=== PATIENT | female | born 1960 | race Caucasian/White ===

== ENCOUNTER 2017-06-21 04:52 | Inpatient (IN) ==
[2017-06-21] MEDS ORDERED: Ondansetron 4 MG/2 ML VIAL IVP PRN (06:22)
[2017-06-21] MEDS ORDERED: Naloxone 0.4 MG/ML INJ IVP PRN (06:22)
[2017-06-21] MEDS ORDERED: 0.9 % Sodium Chloride 1,000 ML IVC SCH ×2 (06:30→07:00)
[2017-06-21 06:51] LABS: Basophils # 0.1 K/mcL (0.0-0.2); Basophils % 0.6 %; Eosinophils % 0.4 %; Hemoglobin 12.3 g/dL (11.5-15.4); Immature Granulocytes % 0.7 % (0-4); Mean Corpuscular HGB Conc 31.5 g/dL (31.6-35.5); Mean Corpuscular Hemoglobin 30.5 pg (28.0-33.3); Mean Corpuscular Volume 96.8 fL (83.0-100.0); Mean Platelet Volume 11.7 fL (9.4-12.4); Monocytes # 0.6 K/mcL (0.0-1.3); Monocytes % 5.7 %; Neutrophils # 7.1 K/mcL (1.6-8.9); Platelet Count 174 K/mcL (140-400); Red Blood Count 4.03 M/mcL (3.82-4.97); Red Cell Distribution Width 16.6 % (11.5-14.5); Segmented Neutrophils % 72.6 %
--- NOTE | 2017-06-21 06:51 | Nephrology Consult Note ---
Date of Encounter: 06/21/17 Time of Encounter: 06:49 Assessment and Plan (1) MARGARITA (acute kidney injury) Current Visit: Yes Status: Acute Anuric MARGARITA. Most likely very pre-renal with several nephrotoxins. She was not uremic on exam, and so she does not necessarily need emergent HD at this hour. Noncontrast CT was negative for hydro IVF started at the referring ER: agree but should increase the rate and change to 1/2NS +75mEq bicarb to help with the metabolic acidosis. She said her mother was on dialysis and so when I provided her options for care today, she requested to hold off on HD and trial IVF first. I'll repeat a BMP later today and if still worsening then would start HD. Will check CK given her diffuse body aches to r/o Rhabdo. Not too hyperkalemic at present. I see that she was just prescribed diclofenac tid on 06/19/17 for arthritis as noted in the [place] clinic based [facility]: stop all NSAIDs. She voiced understanding Hold ANKIT, Metformin, Lasix 20mg tid (her home meds). Will defer DM mgt to her primary admitting team. She is a high risk pt and I spent about 1.5 hr involved in history review, interview, examination, documentation, discussion with the floor RN. Thank you for consulting the [facility]. Will follow with you. (2) NSAID long-term use Current Visit: Yes Status: Acute Fortunately the salicylate level was only 2.5, but she should not continue any NSAIDs going forward. Of note, in a diabetic patient with abnormal eGFR (CKD stage III since January) while taking / prescribed lisinopril, lasix and metformin, taking NSAIDs routinely would be very high risk for damaging renal function. Counseling and education will be provided. (3) CKD (chronic kidney disease), stage III Current Visit: Yes Status: Acute Previously undiagnosed CKD stage III since January, most likely with contributions from DM, HTN, NSAIDs, diuretics, Metformin (4) Metabolic acidosis Current Visit: Yes Status: Acute Suspect 2/2 the MARGARITA and NSAIDs. (5) Hyperkalemia Current Visit: Yes Status: Acute Mild at 5.1 History of Present Illness - Reason for Consult Consult date: 06/21/17 Acute Kidney Injury Requesting physician: Mariam Mata - Chief Complaint MARGARITA with anuria and recent heavy NSAID use - History of Present Illness Alesha Rolle is a pleasant, talkative 57 y/o morbidly obese WF with a pmh of T2DM, HTN, chronic pain on high dose / frequent OTC ASA (self prescribed) and et al who presented with about 4 days onset of N/V and 4-5 liquid stools per day on top of chronic loose stools since her cholecystectomy. She affirmed diffuse body aches, feelings of thirst and little to no UOP since "." She denied ever having seen a prior edge cutter. Nephrology was consulted by the ER for MARGARITA and I was told that the hospitalists had accepted the patient. She affirmed having more nausea and asked for a nausea medication. She affirmed a + family history of CKD and said that her mother required chronic dialysis in [place], [place]. Past Med Surg Social Fam HX - Past Medical History Medical history: diabetes, hyperlipidemia, hypertension, thyroid disease Psychiatric history: no psych history - Social History Smoking Status: Current every day smoker Smokeless Tobacco Status: No Alcohol use: none Drug use: none - Family History Father Living Status: Age at : 63 Hx Family Cancer: Yes Mother Living Status: Age at : 59 Medications and Allergies Aspirin [Ecotrin] 325 mg PO QAM 06/21/17 [History] Cyclobenzaprine [Flexeril] 10 mg PO TID 06/21/17 [History] Ferrous Sulfate 325 mg PO BID 06/21/17 [History] Furosemide [Lasix] 20 mg PO TID 06/21/17 [History] Insulin DETEMIR [Levemir Flextouch] 30 unit SQ HS 06/21/17 [History] Levothyroxine 150 mcg PO QAM 06/21/17 [History] Lisinopril [Zestril] 20 mg PO DAILY 06/21/17 [History] Pregabalin [Lyrica] 75 mg PO TID 06/21/17 [History] SitaGLIPtin [Januvia] 100 mg PO DAILY 06/21/17 [History] glipiZIDE [Glipizide] 10 mg PO BID 06/21/17 [History] metFORMIN [Glucophage] 1,000 mg PO BIDWM 06/21/17 [History] 3 Allergy/AdvReac Type Severity Reaction Status Date / Time No Known Allergies Allergy Verified 10/09/16 18:36 Review of Systems All Systems: reviewed and no additional remarkable complaints except as stated Exam - General Appearance General appearance: well-developed, well-nourished, appears started age, obese EENT: ATNC, PERRL, mucous membranes dry Neck: supple Respiratory: clear Cardiology: no murmurs, no edema (but she does have obese ankles b/l without pitting edema), regular rate, regular rhythm, normal S1, normal S2 Gastrointestinal: normoactive bowel sounds, no tenderness, no guarding, obese Integumentary: no rash, warm and dry Neurologic: no focal deficit, no asterixis, alert and oriented x3 Musculoskeletal: no deformities, no erythema, no cyanosis Psychiatric: mood/affect appropriate, cooperative Results - Lab Results 06/21/17 06:39 I reviewed the labs, meds, vitals, imaging, progress notes (both in the ER and from the [facility] clinic based chart). Consult Discharge Plan - Plan Referrals: Moni De Jesus MD [Primary Care Provider] -
[2017-06-21 07:06] LABS: INR 0.9; Prothrombin Time 10.1 Seconds (9.4-12.1)
[2017-06-21] MEDS ORDERED: Sodium Bicarbonate 75 MEQ in 0.45 % Sodium Chloride 1,000 ML IVC SCH ×2 (08:00→09:45)
[2017-06-21 08:04] LABS: Chol/HDL Ratio 11.7 (0-4.9); Cholesterol 328 mg/dL (< 200); HDL Cholesterol 28 mg/dL (40-59); Magnesium 2.4 mg/dL (1.6-2.6); Phosphorous 7.5 mg/dL (2.3-4.7); Triglycerides 549 mg/dL (< 150)
[2017-06-21 08:07] LABS: Albumin 3.3 g/dL (3.5-5.0); Albumin/Globulin Ratio 0.8 (1.1-2.2); Bilirubin,Total 0.4 mg/dL (0.2-1.2); Calcium 9.4 mg/dL (8.6-10.8); Globulin 4.2 g/dL (2.4-3.5); Potassium 5.4 mEq/L (3.5-4.5); Total Protein 7.5 g/dL (6.0-8.3)
[2017-06-21] MEDS ORDERED: D5% in Water 1,000 ML IVC PRN (08:40)
[2017-06-21] MEDS ORDERED: Dextrose Gel 15 GM PO PRN ×2 (08:40)
--- NOTE | 2017-06-21 08:46 | Internal Med History&Physical ---
Date of Encounter: 06/21/17 Time of Encounter: 07:15 Assessment and Plan (1) MARGARITA (acute kidney injury) Current visit: Yes Status: Acute Acute kidney injury with patient's report of no urine output for the past 24 hours. IV fluids @ 80 mL/HR ordered for gentle hydration due to current dehydration. Promoting oral fluids as well. Nephrology consult completed by Dr. Poole. Will hold all NSAIDS, metformin. Will also temporarily hold lasix due to anuria and lisinopril. Patient's current BP 133/81. Monitor f/u labs and patient closely. (2) NSAID long-term use Current visit: Yes Status: Acute Patient's salicylate level 2.5 on admission but reports chronic pain for which she takes pain medication. Patient reports severe epigastric pain but CT of the abdomen/pelvis today shows no hydronephrosis and diverticulosis without scan evidence for diverticulitis. Patient's current GFR is 5 and she is also taking lasix, lisinopril, and metformin which is likely adding to MARGARITA. No NSAIDS. Patient counseled on discontinuation of NSAIDS and the effects LT use has on liver and renal function. Patient confirms understanding. Hepatic panel ordered. (3) Hyperkalemia Current visit: Yes Status: Acute Mildly acute hyperkalemia with potassium level of 5.4. Patient receiving IV fluids for hydration. Monitor follow-up labs for potassium status. (4) Dehydration Current visit: Yes Status: Acute Acute dehydration. IV fluids @ 80 mL/HR for gentle hydration due to current MARGARITA. Monitor I&O and daily weight. Promote oral fluids. (5) Metabolic acidosis Current visit: Yes Status: Acute Acute metabolic acidosis most likely due to current MARGARITA and NSAID overuse. Monitor labs. (6) Thyroid disease Current visit: Yes Status: Chronic Hx of chronic thyroid disease. Continue synthroid. (7) HLD (hyperlipidemia) Current visit: Yes Status: Chronic Hx of chronic HLD but patient is not currently on statin. Lipid panel results: Triglycerides 549, cholesterol 328, HDL cholesterol 28. Lipitor 40 mg HS ordered. Qualifiers: Hyperlipidemia type: pure hypercholesterolemia Qualified Code(s): E78.00 - Pure hypercholesterolemia, unspecified; E78.0 - Pure hypercholesterolemia (8) HTN (hypertension) Current visit: Yes Status: Chronic Hx of chronic HTN. Current BP is 133/81. Will hold lisinopril and lasix for now due to MARGARITA and dysuria. Qualifiers: Hypertension type: essential hypertension Qualified Code(s): I10 - Essential (primary) hypertension (9) Diabetes Current visit: Yes Status: Chronic Hx of chronic diabetes controlled with oral anti-hyperglycemics and insulin. Hold patient's oral medication with administered low-dose correction sliding scale insulin with hypoglycemic protocol. Blood glucose monitoring before meals and at bedtime. A1c ordered and labs. Diabetes Education consult ordered. Qualifiers: Diabetes mellitus type: type 2 Diabetes mellitus complication status: with kidney complications Diabetes mellitus complication detail: with other kidney complication Diabetes mellitus longitudinal float operator insulin use: with mcfp use Qualified Code(s): E11.29 - Type 2 diabetes mellitus with other diabetic kidney complication; Z79.4 - long term care social worker (current) use of insulin (10) DVT prophylaxis Current visit: Yes Status: Acute Bilateral SCDs were placed on patient's LEs for DVT prophylaxis patient's report of melenic stools. Internal Medicine - H&P: HPI Chief complaint: Decreased urine output Admitted From: Intrahospital Transfer Plans for Post Hospital Care: Home History of present illness: Ms. Rolle is a 57 year old female with medical history of diabetes controlled with oral medications and insulin, HLD, HTN, and thyroid disease presents from the [facility] ED with chief complaint of decreased urine output over the past four days with no urine since noon yesterday. Patient also reports severe abdominal pain across epigastric area and states that she has two hernias: one umbilical and one in the epigastric area. Patient is a current smoker smoking 1/2 PPD, down from 4 PPD. Patient reports previous watery and melenic stool but states she takes iron currently and denies recent abx use. She states she is now constipated due to dehydration. Patient reports right breast pain that she is being followed for by her PCP, back pain, SOB, nausea, abdominal pain, and difficulty urinating but denies chest pain, palpitations, recent illness, fever , chills, headache, vision changes, lightheadedness, dizziness, presyncope, or syncope. On admission, patient's vital signs include temperature of 97.2F, heart rate of 92 bpm, respiratory rate of 18, repeat 145 or 79, and SPO2 of 98% on room air. Pertinent abnormal labs include potassium of 5.4, B1 of 49, creatinine of 8.28, GFR 5, glucose 64, phosphorous of 7.5, alkaline phosphatase of 148, albumin 3.3, globulin 4.2, albumin/globulin ratio 0.8, triglycerides of 549, cholesterol of 328, and HDL cholesterol of 28. 1-View CXR today shows cardiac silhouette and mediastinal contours are stable. Lung volumes are low with no focal lung infiltrates. No pleural effusion or pneumothorax. Visualized osseous structures are unremarkable. CT of the abdomen/pelvis w/o contrast today shows no hydronephrosis and diverticulosis without scan evidence for diverticulitis. Upon assessment, patient is alert and oriented 3 and states she is mildly nauseous and experiencing generalized moderate pain in her epigastric area which is increased with movement. Heart rate is in the lungs have diminished breath sounds bilaterally on auscultation. Patient is hemodynamically stable and reports moderate abdominal pain and mild nausea. Information taken from patient, chart review, and previous medical records and imaging. Ms. Rolle is at high risk for further morbidity based on current symptoms acute kidney injury and decreased urine output, dehydration, medical history and risk factors and will be placed as inpatient status. Time spent with patient greater than 40 minutes. Past Med Surg Social Fam HX - Past Medical History Source: patient, old records reviewed Medical history: diabetes, hyperlipidemia, hypertension, thyroid disease Psychiatric history: no psych history - Social History Smoking Status: Current every day smoker Packs per day: 1/2 PPD, down from 4 PPD Smokeless Tobacco Status: No Alcohol use: none Drug use: none Current living situation: Home Activity Level: Uses cane/walker Recent Out of Country Travel Within the Last 8 Weeks: No Exposure or Possible Exposure to Illness During Travel: No - Family History Father Race: Family Member Ethnicity: Non- Living Status: Age at : 96 Cause of : Liver cancer Hx Family Cancer: Yes (Liver) Mother Race: Family Member Ethnicity: Non- Living Status: Age at : 59 Cause of : Bone cancer Hx Family Cancer: Yes (Bone) Hx Family Endocrine Disorder: Yes (DM) Brother Race: Family Member Ethnicity: Non- Living Status: Still Living Hx Family Medical Disorders: No Sister Race: Family Member Ethnicity: Non- Living Status: Still Living Hx Family Medical Disorders: No Internal Medicine - H&P: Meds Aspirin [Ecotrin] 325 mg PO QAM 06/21/17 [History] Cyclobenzaprine [Flexeril] 10 mg PO TID 06/21/17 [History] Diclofenac Sodium [Voltaren] 50 mg PO Q8HR 06/21/17 [History] Ferrous Sulfate 325 mg PO BID 06/21/17 [History] Furosemide [Lasix] 20 mg PO TID 06/21/17 [History] Insulin DETEMIR [Levemir Flextouch] 30 unit SQ HS 06/21/17 [History] Levothyroxine Sodium [Synthroid] 200 mcg PO 0630 06/21/17 [History] Lisinopril [Zestril] 20 mg PO DAILY 06/21/17 [History] Pregabalin [Lyrica] 150 mg PO TID 06/21/17 [History] SitaGLIPtin [Januvia] 100 mg PO DAILY 06/21/17 [History] glipiZIDE [Glipizide] 10 mg PO BID 06/21/17 [History] metFORMIN [Glucophage] 1,000 mg PO BIDWM 06/21/17 [History] 3 Allergy/AdvReac Type Severity Reaction Status Date / Time No Known Allergies Allergy Verified 06/21/17 12:13 All Systems PM: A 10-system review of systems was performed and is negative for pertinent findings except as documented above in the HPI. - Constitutional Constitutional: as per HPI, falls, no chills, no fever(s), no night sweats - EENT Eyes: no change in vision, no discharge, no pain, no photophobia Ears: no ear discharge, no ear pain, no tinnitus Nose, mouth and throat: no dysphagia, no nasal discharge, no neck pain, no sore throat - Breasts Breasts: as per HPI, pain (Right breast that patient discussed w/PCP and reports she is being followed for regularly.) - Cardiovascular Cardiovascular ROS IM: as per HPI, dyspnea, no chest pain, no diaphoresis, no lightheadedness, no palpitations, no syncope - Respiratory Respiratory: as per HPI, dyspnea - Gastrointestinal Gastrointestinal: as per HPI, abdominal pain (Epigastric area), constipation, nausea, vomiting - Genitourinary Genitourinary: as per HPI, breast pain (Right breast), difficulty urinating, dysuria, urinary urgency Menstruation: as per HPI - Musculoskeletal Musculoskeletal ROS IM: as per HPI, back pain, no numbness, no tingling - Integumentary Integumentary IM: no rash, no unusual bruising - Neurological Neurological ROS: as per HPI, frequent falls, no confusion, no convulsions, no focal weakness, no numbness, no tingling, no tremor(s) - Psychiatric Psychiatric: as per HPI - Endocrine Endocrine IM: as per HPI - Hematologic/Lymphatic Hematologic/Lymphatic: no easy bruising - Allergic/Immunologic Allergic/Immunologic: as per HPI - Constitutional Vitals: Temp Pulse Resp BP Pulse Ox 98.2 F 91 17 133/81 92 06/21/17 08:00 06/21/17 08:00 06/21/17 08:00 06/21/17 08:00 06/21/17 08:00 General appearance: Present: cooperative, A&O X 3, pleasant, obese, severe distress (Abdominal/epigastric pain with coughing or positional changes), answers questions appropriately - Head Head exam: Present: atraumatic, normocephalic - Eye Eye exam: Present: PERRL, conjuntiva pink, sclera anicteric Pupils: Present: PERRL - ENT ENT exam: Present: normal exam, normal external ear exam - Neck Neck exam general surgery: Present: normal inspection, supple, trachea midline. Absent: lymphadenopathy - Respiratory Respiratory exam: Present: decreased breath sounds - Cardiovascular Cardiovascular exam: Present: RRR, +S1, +S2. Absent: diastolic murmur, gallop, rubs, systolic murmur - GI/Abdominal GI/Abdominal exam: Present: diminished bowel sounds, guarding, hernia, soft, tenderness - Rectal Rectal exam: Present: deferred - Additional comments: exam deferred. - Extremities Exam Extremities exam: Present: warm, radial pulses palpable and symmetrical. Absent : calf tenderness, cyanotic, pedal edema - Back Exam Back exam: Present: normal inspection - Neurological Exam Neurological exam: Present: CN II-XII intact, oriented X3, no focal deficits. Absent: pronater drift, facial droop, speech deficit - Psychiatric Psychiatric exam: Present: normal affect, normal mood - Skin Skin exam: Present: dry, intact Internal Med - H&P Results - Labs CBC & Chem 7: 06/21/17 06:39 06/21/17 09:28 Labs: Short CBC 06/21/17 Range/Units 06:39 WBC 9.8 (4.3-11.1) K/mcL Hgb 12.3 (11.5-15.4) g/dL Hct 39.0 (35.3-44.9) % Plt Count 174 (140-400) K/mcL Neutrophils # 7.1 (1.6-8.9) K/mcL BMP 06/21/17 06:39 Sodium 139 Potassium 5.4 H Chloride 99 Carbon Dioxide 20 BUN 49 H Creatinine 8.28 H Glucose 64 L Calcium 9.4 Cardiac Enzymes 06/21/17 Range/Units 06:39 Troponin I 0.01 (0-0.03) ng/mL Liver Function 06/21/17 Range/Units 06:39 Total Bilirubin 0.4 (0.2-1.2) mg/dL AST 10 (5-34) Units/L ALT 18 (0-55) Units/L Alkaline Phosphatase 148 H (38-126) Units/L Albumin 3.3 L (3.5-5.0) g/dL - EKG Data EKG shows normal: sinus rhythm - EKG Data Prior EKG available for review: no EKG comments: 06/21/17 09:47 EKG dated 06/21/17 shows sinus rhythm with low QRS voltage in precordial leads. - Impressions ITS Impressions Chest X-Ray 06/21/17 06:30 IMPRESSION: 1. Stable low lung volumes. D/ / Alex Marte MD / Alex Marte MD Interpreting Provider: Alex Marte MD - Diagnostic Studies Chest x-ray Additional comments: Impressions Chest X-Ray 06/21/17 06:30 IMPRESSION: 1. Stable low lung volumes. D/ / Alex Marte MD / Alex Marte MD Interpreting Provider: Alex Marte MD CT scan - abdomen Additional comments: Impressions EXAMINATION: CT OF THE ABDOMEN AND PELVIS WITHOUT CONTRAST 06/21/2017 3:09 am TECHNIQUE: CT of the abdomen and pelvis was performed without the administration of intravenous contrast. Multiplanar reformatted images are provided for review. Dose modulation, iterative reconstruction, and/or weight based adjustment of the mA/kV was utilized to reduce the radiation dose to as low as reasonably achievable. COMPARISON: 04/21/2015 HISTORY: ORDERING SYSTEM PROVIDED HISTORY: abd pain no urine out put FINDINGS: Lower Chest: The visualized lung bases are clear. Organs: The liver, spleen, pancreas, adrenal glands and kidneys are grossly negative given the limitations of the noncontrast technique. GI/Bowel: Small bowel caliber is normal. The patient is status post appendectomy. There are descending and sigmoid colon diverticula without evidence for diverticulitis. Pelvis: The uterus is grossly negative. The urinary bladder is empty. Peritoneum/Retroperitoneum: No adenopathy, mesenteric stranding or free fluid. Aortic caliber is normal. Bones/Soft Tissues: No acute findings. Evidence of L5-S1 fusion is again seen. CT/CT abd pelvis wo no iv no oral IMPRESSION: 1. No hydronephrosis. 2. Diverticulosis without scan evidence for diverticulitis. D/ / Enrrique Peng MD / Enrrique Peng MD Interpreting Provider: Enrrique Peng MD
[2017-06-21] MEDS ORDERED: Famotidine 20 MG/2 ML VIAL IVP SCH (09:00)
[2017-06-21] MEDS ORDERED: Pantoprazole 40 MG VIAL IVP SCH (09:00)
[2017-06-21] MEDS ORDERED: Nicotine 14 MG PATCH.TD24 TD SCH (09:00)
[2017-06-21] MEDS: *HR* Morphine 2 MG/ML SYRINGE IVP PRN ×2 (09:22→14:22)
[2017-06-21 10:09] LABS: Calcium 9.1 mg/dL (8.6-10.8); Potassium 5.2 mEq/L (3.5-4.5)
[2017-06-21 10:10] LABS: Albumin 3.1 g/dL (3.5-5.0); Albumin/Globulin Ratio 0.8 (1.1-2.2); Bilirubin,Direct 0.1 mg/dL (0.0-0.5); Bilirubin,Indirect 0.3 mg/dL (0.0-1.2); Bilirubin,Total 0.4 mg/dL (0.2-1.2); Globulin 3.9 g/dL (2.4-3.5)
--- NOTE | 2017-06-21 10:40 | Event Note ---
Date of Encounter: 06/21/17 Time of Encounter: 10:38 Nephrology Chart Review Her renal function continues to demonstrate a slow improvement with IVF just having been started. Continue the IVF and since she is not uremic on exam, I do not recommend urgent initiation of HD today. Will continue to follow with you. Low K+ diet recommended for mild hyperkalemia most recently checked at 5.2. Thank you
[2017-06-21] MEDS: Insulin LISPRO 300 UNITS/3 ML VIAL SQ SCH ×2 (10:56→17:01)
[2017-06-21] MEDS: *HR* Dextrose 50 % in Water (Syg) 50 ML SYRINGE IVP PRN ×5 (11:32→20:14)
[2017-06-21] MEDS ORDERED: Pregabalin 75 MG CAPSULE PO SCH (15:00)
--- NOTE | 2017-06-21 16:18 | Event Note ---
Date of Encounter: 06/21/17 Time of Encounter: 16:16 Patient was independently seen and examined and chart reviewed plan discussed with nurse practitioner. Patient has come in with oliguria and was noted to be in acute renal failure. She has history of diabetes hypertension dyslipidemia. She is producing very little urine though she has been hydrated couple of liters already. She is complaining of abdominal pain in her abdomen seemed distended with positive tenderness negative rebound nor organomegaly some fullness in the hypochondrium. Discussed with nurse who mentioned that to bladder scan last night was not showing much urine. Recommend to put Morris catheter and leave it there. Although CBC CMP. Nephrology is on the case.
[2017-06-21] MEDS ORDERED: *HR* Heparin 5,000 UNIT/ML VIAL SQ SCH (18:00)
[2017-06-21] MEDS ORDERED: Aspirin 325 MG TABLET PO ONE (18:22)
[2017-06-21] MEDS ORDERED: D5% in 0.9% NACL 1,000 ML IVC SCH (18:30)
--- NOTE | 2017-06-21 18:38 | Event Note ---
Date of Encounter: 06/21/17 Time of Encounter: 18:33 57 YO F admitted and being managed for acute pre-renal and intrinsic MARGARITA RR was called due to stroke-like symptoms Patient has also had bouts of hypoglycemia since admission, she is diabetic on insulin at home VS: BP 160 SBP, FS 90s. Hr WNL Patient has no facial paralysis or speech deficits, pupils are equal and reactive bilaterally. She has left upper extremity weakness said to be new. Power 3/5. She has no sensory deficits HS S1, S2. abdomen is soft and tender generally with no rebound. patient also complained of a left shoulder pain that is chronic A/P Stroke-like symptoms: Obtain Head CT. L shoulder Xray. Give ASA, Lipitor. Obtain EKG. Give D5/0.9 saline for recurrent hypoglycemia Patient may be eligible for TPA if head CT is negative, next shift to discuss with [facility] neurology. Rest of management as in prior.
[2017-06-21 19:21] VITALS: BP 131/79
[2017-06-21] MEDS ORDERED: Insulin LISPRO 300 UNITS/3 ML VIAL SQ SCH (21:00)
--- NOTE | 2017-06-21 21:09 | Event Note ---
Date of Encounter: 06/21/17 Time of Encounter: 20:45 Stroke alert was called. I have discussed with on-call neurologist, Dr. Deluna at [facility]. She has also examined the patient via tele-stroke monitor. Patient was also examined by daytime physician and her left upper extremity weakness seems to be persistent. Patient was found to have stroke-like symptoms at around 6 PM this evening. Stat CT head without contrast does not show any acute intracranial abnormality. Patient also had a CT of the abdomen and pelvis for abdominal pain and distention, and there is no acute intra-abdominal abnormality, there is diverticulosis without diverticulitis. HR: 90, BP: 160/90, O2 sat: 96% on 2 L O2, Temperature: 98.1 Heart: S1-S2 positive. Lungs: bilateral good entry, no wheezes or crackles. Abdomen: Soft, mild epigastric tenderness, seems distended, no guarding. Extremities: All pulses strong and regular, trace bilateral lower leg edema. Patient continues to have left arm weakness, strength is about 3/5. Patient also seems to have left leg weakness, but she does have pain in her groin when We tried to move her left lower leg. Patient also seems to have sensory deficit on the left side, mainly the left side of face and left upper extremity. Patient is awake and alert, oriented to place and person and time. Able to verbalize and follows verbal commands. No facial droop noted. TPA administration has been recommended by neurologist at [facility]. I have discussed with the patient about the risks and benefits of receiving TPA. I have explained to her about the risks that include bleeding and possible . Patient has understood and agrees for TPA administration. No family members at bedside. Patient states she lives by herself and has no other family members to take care of her. Patient is currently receiving Alteplase. Patient will be transferred to [facility] via med flight after she receives TPA. All medical records and imaging reports will be sent with the patient. Diagnosis: - Acute CVA, s/p TPA - Severe MARGARITA, anuric - likely prerenal secondary to nephrotoxins - Metabolic acidosis secondary to MARGARITA - Chronic back pain - NSAID long-term use - Insulin-dependent diabetes mellitus Plan: - Transfer to [facility] for further management of acute CVA and MARGARITA
[2017-06-22] MEDS ORDERED: Aspirin Enteric Coated 325 MG Tablet PO SCH (09:00)
--- NOTE | 2017-06-22 18:13 | Electrocardiograph Report ---
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
--- NOTE | 2017-06-22 19:04 | Electrocardiograph Report ---
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
--- NOTE | 2017-06-22 19:05 | Electrocardiograph Report ---
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
== END 2017-06-21 21:45 | disposition other institution (70) | DRG 65 ==
LOC: 2ANU → PREINTOOBSV 05:15
PROVIDERS: ADMIT Family Medicine; ATTEND Internal Medicine